=== PATIENT | male | born 1955 | race Caucasian/White ===

== ENCOUNTER 2016-05-13 12:13 | Emergency (ER) | payer OTHER ==
[2016-05-13 12:25] VITALS: BMI 23.4
--- NOTE | 2016-05-13 13:29 | EDPRACDOC ---
- General Information Chief Complaint: Altered Mental Status Stated Complaint: WEAKNESS Time Seen by Provider: 05/13/16 12:19 Information Source: Horticulturalist Home Medications: Home Medications Omeprazole [Prilosec] 40 mg PO DAILY 04/21/14 Amlodipine [Norvasc] 5 mg PO DAILY 03/12/16 Capsaicin [Arthritis Pain Relief] 2 gm TOP QID PRN 03/12/16 Gabapentin 600 mg PO BID 03/12/16 Propranolol HCl [Inderal] 20 mg PO .TID SEE COMMENTS 03/14/16 [place] Tar [T-Gel] 2 ml TOP DAILY 04/12/16 NPH, Human Insulin Isophane [Humulin N] 12 units SQ 0500 04/12/16 Spironolactone [Aldactone] 100 mg PO BID 04/12/16 NPH, Human Insulin Isophane [Humulin N] 4 units SQ 1500 04/15/16 Insulin Glargine [Lantus Pen] 30 units SQ QHS 04/23/16 Amoxicillin/Clavulanate Potas. [Augmentin] 875 mg PO BIDWM #14 tablet 04/30/16 Lactulose 30 ml PO TID 30 Days 04/30/16 Probiotic Blend [Paige Q] 1 each PO BID #30 tab 04/30/16 Allergies/Adverse Reactions: Allergies Allergy/AdvReac Type Severity Reaction Status Date / Time codeine Allergy Itching Verified 05/13/16 12:21 hydrocodone bitartrate Allergy Itching Verified 05/13/16 12:21 [From Vicodin] - History of Present Illness Onset: today Exact Onset of Symptoms: Unknown HPI: PT PRESENTS TODAY [facility] STAFF REPORTS THAT THEY HAD A DIFFICULT TIME WAKING THE PT, AND WHEN THEY WOKE HIM, HE DID NOT KNOW THE YEAR. PT HAS NO COMPLAINTS. PT WELL KNOWN TO EMS WHO STATES THAT PT APPEARS MORE ALERT THAN HE EVER HAS. HAS CHRONIC LIVER FAILURE. PT HAS NO COMPLAINTS. PT STATES "I FEEL GREAT, I DON'T KNOW WHY I'M HERE". Symptoms began: At Night Symptoms Currently: Reports: Improved Altered Quality: Reports: Decreased Alertness Recent Symptoms of: Reports: None Prehospital: Reports: EMT Blood Glucose Result: 134 - Treatment Prior to ED Arrival Reported Medications/Treatment [facility] Treatment BLS IV No ED Past Medical History - History Reviewed Yes Nurses notes reviewed and agree except as marked - Patient Medical History Cardiac History: Reports: Hypertension, Congestive Heart Failure (No documented echocardiogram.), Syncope Respiratory History: Reports: COPD, Pneumonia GI/ History: Reports: Liver Failure (Alcoholic cirrhosis of the liver), Gastroesophageal Reflux Musculoskeletal History: Reports: Arthritis Psychological History: Reports: Anxiety. Denies: Depression, Substance Use Disorder Systemic History: Reports: Anemia (UNSPECIFIED LIKELY DUE TO LIVER), Diabetes ( Type 2) Additional Past Medical History: ACQUIRED HYPOTHYROIDISM Surgical History: Reports: Other (Exploratory laparotomy. [place] filter placement.) - Family Medical History Reports: Diabetes, Stroke, Cardiac Disorders - Social Medical History Smoking Status: Former smoker Social History: Denies: Substance Use Disorder EDM Review of Systems - Review of Systems ROS Negative Except as Marked: Yes All systems reviewed and were negative except as marked Constitutional: No Symptoms Reported Respiratory: No Symptoms Reported Cardiovascular: No Symptoms Reported Gastrointestinal: No Symptoms Reported Neurological: No Symptoms Reported Musculoskeletal: No Symptoms Reported Integumentary: No Symptoms Reported - Physical Exam Constitutional: Alert (Awake), No apparent distress Oriented to: Time, Person, Place Last recorded Vital Signs: Last Vital Signs Temp 97.5 F 05/13/16 12:21 Pulse 69 05/13/16 12:25 Resp 16 05/13/16 12:25 BP 121/71 05/13/16 12:25 Pulse Ox 99 05/13/16 12:25 Oxygen Pulse Oxygen Saturation 99 O2 Device Room Air Oxygen Flow Rate Fraction of Inspired Oxygen ( FIO2) - HEENT Head: Normal Eye Exam: Scleral Icterus Oropharynx: Normal Neck: Normal, Denies Pain, Midline - Respiratory/Cardiovascular Respiratory: Normal - CTA Cardiovascular: Normal - GI Auscultation: Normal Palpation: Fluid Wave Tenderness: Non tender - Musculoskeletal Back: Normal Extremities: Normal - Integumentary Skin: Jaundice Lymphatics: Normal - Neurologic Cerebellar: Normal Mood Description: Normal Thought: Coherent Perception: Normal - Additional Information Additional Information: CASE DISCUSSED WITH DR. SINGER. PT SLEEPING AND WAKES EASILY. PT CONTINUES TO HAVE NO COMPLAINTS. AMMONIA AVERAGE FOR PT. Decision Time to Discharge: 14:34 - Departure Disposition: Home Condition: Stable Final Diagnosis: Cirrhosis Qualifiers: Hepatic cirrhosis type: other cirrhosis Qualified Code(s): K74.69 - Other cirrhosis of liver Instructions: Acute Delirium (ED), Dementia (GEN) Education/Counseling Given To: Other Education/Counseling Given Regarding: Diagnosis, Treatment, Follow Up
[2016-05-13 14:42] VITALS: BP 119/69; PULSE 70; TEMP 98.2
== END 2016-05-13 14:55 ==
LOC: EEVIPCON 12:13 → ED 12:13
DX: K74.69 Other cirrhosis of liver (principal); I10 Essential (primary) hypertension; I50.9 Heart failure, unspecified; J44.9 Chronic obstructive pulmonary disease, unspecified; K21.9 Gastro-esophageal reflux disease without esophagitis; F41.9 Anxiety disorder, unspecified; E11.9 Type 2 diabetes mellitus without complications; Z79.4 Long term (current) use of insulin; Z79.899 Other long term (current) drug therapy
CPT/HCPCS: 82140; 99283

== ENCOUNTER 2016-05-14 10:03 | Inpatient (IN) | payer OTHER ==
[2016-05-14] MEDS ORDERED: SODIUM CHLORIDE 0.9% 10 ML FLUSH FLUSH PRN (10:11)
[2016-05-14 10:15] LABS: ALLEN'S TEST PASS; BEb -1.1 (+/- 2); TCO2 20.4 MMOL/L (23-27)
[2016-05-14 10:16] LABS: ABG Draw Site Right Radial; ABG Draw Tech SI
[2016-05-14 10:44] LABS: LEUKOCYTES/URINE NEG (NEGATIVE); NITRITE/URINE NEG (NEGATIVE); URINE OCCULT BLOOD 1+ (NEG/TRACE); WBC/URINE 0-2 (0-2)
--- NOTE | 2016-05-14 10:46 | EDPRACDOC ---
- General Information Information Source: [facility] - History of Present Illness Onset: 0900 Exact Onset of Symptoms: Unknown Date Symptoms Started: 05/14/16 HPI: PT PRESENTS FROM [facility]. PT WELL KNOWN TO ME; HAS PMH OF LIVER FAILURE AND OFTEN HAS ELEVATED AMMONIA LEVELS. I SAW PT YESTERDAY FOR SAME, BUT YESTERDAY PT WAS TALKING AND HAD NO COMPLAINTS. TODAY, PT COMPLETELY OBTUNDED. VSS AT THIS TIME. Symptoms began: At Night Duration: Since Onset Symptoms Currently: Reports: Worsened Altered Quality: Reports: Decreased Alertness Altered Severity: Reports: Unresponsive Prehospital: Reports: [facility], IV <Kinga Rosa - Last Filed: 05/14/16 12:23> <Johnie Mo - Last Filed: 05/14/16 12:41> - General Information Stated Complaint: AMS Time Seen by Provider: 05/14/16 10:11 Home Medications: Home Medications Omeprazole [Prilosec] 40 mg PO DAILY 04/21/14 Amlodipine [Norvasc] 5 mg PO DAILY 03/12/16 Capsaicin [Arthritis Pain Relief] 2 gm TOP QID PRN 03/12/16 Gabapentin 600 mg PO BID 03/12/16 Propranolol HCl [Inderal] 20 mg PO .TID SEE COMMENTS 03/14/16 [place] Tar [T-Gel] 2 ml TOP DAILY 04/12/16 NPH, Human Insulin Isophane [Humulin N] 12 units SQ 0500 04/12/16 Spironolactone [Aldactone] 100 mg PO BID 04/12/16 NPH, Human Insulin Isophane [Humulin N] 4 units SQ 1500 04/15/16 Insulin Glargine [Lantus Pen] 30 units SQ QHS 04/23/16 Amoxicillin/Clavulanate Potas. [Augmentin] 875 mg PO BIDWM #14 tablet 04/30/16 Lactulose 30 ml PO TID 30 Days 04/30/16 Probiotic Blend [Paige Q] 1 each PO BID #30 tab 04/30/16 Allergies/Adverse Reactions: Allergies Allergy/AdvReac Type Severity Reaction Status Date / Time codeine Allergy Itching Verified 05/13/16 12:21 hydrocodone bitartrate Allergy Itching Verified 05/13/16 12:21 [From Vicodin] - Treatment Prior to ED Arrival Reported Medications/Treatment [facility] Treatment BLS IV Yes <Kinga Rosa - Last Filed: 05/14/16 12:23> - Treatment Prior to ED Arrival Reported Medications/Treatment [facility] Treatment BLS IV Yes <Johnie Mo - Last Filed: 05/14/16 12:41> ED Past Medical History - History Reviewed Yes Nurses notes reviewed and agree except as marked - Patient Medical History Cardiac History: Reports: Hypertension, Congestive Heart Failure (No documented echocardiogram.), Syncope Respiratory History: Reports: COPD, Pneumonia GI/ History: Reports: Liver Failure (Alcoholic cirrhosis of the liver), Gastroesophageal Reflux Musculoskeletal History: Reports: Arthritis Psychological History: Reports: Anxiety. Denies: Depression, Substance Use Disorder Systemic History: Reports: Anemia (UNSPECIFIED LIKELY DUE TO LIVER), Diabetes ( Type 2) Additional Past Medical History: ACQUIRED HYPOTHYROIDISM Surgical History: Reports: Other (Exploratory laparotomy. [place] filter placement.) - Family Medical History Reports: Diabetes, Stroke, Cardiac Disorders - Social Medical History Smoking Status: Current status unknown Social History: Denies: Substance Use Disorder <Kinga Rosa - Last Filed: 05/14/16 12:23> EDM Review of Systems - Review of Systems ROS Negative Except as Marked: Yes All systems reviewed and were negative except as marked ROS Unobtainable: Yes Review of systems cannot be obtained due to the patient's medical condition <Kinga Rosa - Last Filed: 05/14/16 12:23> - Physical Exam Constitutional: Other (OBTUNDED) Oriented to: Unable to Test Last recorded Vital Signs: Last Vital Signs Temp 98 F 05/14/16 10:10 Pulse 62 05/14/16 10:29 Resp 15 05/14/16 10:29 BP 156/67 05/14/16 10:29 Pulse Ox 100 05/14/16 10:29 Oxygen Pulse Oxygen Saturation 100 O2 Device Room Air Oxygen Flow Rate Fraction of Inspired Oxygen ( FIO2) - HEENT Head: Normal Eye Exam: Other (FIXED UPPER GAZE TO LEFT; PUPILS SLUGGISH, BUT RESPONSIVE) Neck: Normal, Denies Pain, Midline - Respiratory/Cardiovascular Respiratory: Normal - CTA Cardiovascular: Normal - GI Auscultation: Decreased Tenderness: Non tender, Other (ABDOMEN DISTENDED WITH FLUID WAVE, BUT SOFT) - Musculoskeletal Back: Normal Extremities: Normal - Integumentary Skin: Jaundice Lymphatics: Normal - Neurologic Cerebellar: Unable to Test <Kinga Rosa - Last Filed: 05/14/16 12:23> - Physical Exam Last recorded Vital Signs: Last Vital Signs Temp 98 F 05/14/16 10:10 Pulse 62 05/14/16 12:18 Resp 16 05/14/16 12:18 BP 135/67 05/14/16 12:18 Pulse Ox 100 05/14/16 12:18 Oxygen Pulse Oxygen Saturation 100 O2 Device Room Air Oxygen Flow Rate Fraction of Inspired Oxygen ( FIO2) <Johnie Mo - Last Filed: 05/14/16 12:41> - Results 05/14/16 10:40 05/14/16 10:40 Puncture Site Right radial 05/14/16 10:12 pH 7.540 pH UNITS (7.35-7.45) H 05/14/16 10:12 pCO2 23.0 mmHg (35-45) L 05/14/16 10:12 pO2 89.0 mmHg (80-100) 05/14/16 10:12 HCO3 19.7 MMOL/L (22-26) L 05/14/16 10:12 Total CO2 20.4 MMOL/L (23-27) L 05/14/16 10:12 Base Excess -1.1 (+/- 2) 05/14/16 10:12 FiO2 % 21% 05/14/16 10:12 Specimen Drawn By Si 05/14/16 10:12 Lab Results 05/14/16 10:12 Puncture Site Right radial pH 7.540 H pCO2 23.0 L pO2 89.0 HCO3 19.7 L Total CO2 20.4 L Base Excess -1.1 FiO2 % 21% Specimen Drawn By Si - EKG EKG #1 EKG Time: 10:18 -: Yes EKG interpreted by me Rate: bpm: 60 [place]: Normal Rhythm: NSR Block: None Hypertrophy: None ST: Normal <Kinga Rosa - Last Filed: 05/14/16 12:23> - Results 05/14/16 10:40 05/14/16 10:40 WBC 5.2 xk/uL (3.8-10.8) 05/14/16 10:40 RBC 4.50 xM/uL (4.70-6.10) L 05/14/16 10:40 Hgb 11.6 g/dL (14.0-18.0) L 05/14/16 10:40 Hct 35.4 % (42-52) L 05/14/16 10:40 MCV 79 fL (80-94) L 05/14/16 10:40 MCH 25.7 pg (27-32) L 05/14/16 10:40 MCHC 32.7 g/dl (33-36) L 05/14/16 10:40 RDW 19.2 % (11.5-14.5) H 05/14/16 10:40 Plt Count 85 xk/uL (130-400) L 05/14/16 10:40 MPV 8.9 fL (7.4-10.4) 05/14/16 10:40 Neut % (Auto) 72.1 % (45-76) 05/14/16 10:40 Lymph % (Auto) 8.8 % (17-44) L 05/14/16 10:40 [place] % (Auto) 15.4 % (3-10) H 05/14/16 10:40 Eos % (Auto) 3.1 % (0-5) 05/14/16 10:40 Baso % (Auto) 0.6 % (0-2) 05/14/16 10:40 Absolute Neuts (auto) 3.74 xk/uL (1.7-8.2) 05/14/16 10:40 Absolute Lymphs (auto) 0.42 xk/uL (0.65-4.75) L 05/14/16 10:40 PT 13.6 SEC (9.2-11.2) H 05/14/16 10:40 INR 1.3 05/14/16 10:40 APTT 27.8 SEC (22-35) 05/14/16 10:40 Puncture Site Right radial 05/14/16 10:12 pH 7.540 pH UNITS (7.35-7.45) H 05/14/16 10:12 pCO2 23.0 mmHg (35-45) L 05/14/16 10:12 pO2 89.0 mmHg (80-100) 05/14/16 10:12 HCO3 19.7 MMOL/L (22-26) L 05/14/16 10:12 Total CO2 20.4 MMOL/L (23-27) L 05/14/16 10:12 Base Excess -1.1 (+/- 2) 05/14/16 10:12 FiO2 % 21% 05/14/16 10:12 Specimen Drawn By Si 05/14/16 10:12 Sodium 140 mEq/L (137-146) 05/14/16 10:40 Potassium 5.8 mEq/L (3.5-5.1) H 05/14/16 10:40 Chloride 109 mEq/L (98-107) H 05/14/16 10:40 Carbon Dioxide 19 mMOL/L (22-33) L 05/14/16 10:40 Anion Gap 18 mEq/L (8-16) H 05/14/16 10:40 BUN 19 MG/DL (9-20) 05/14/16 10:40 Creatinine 0.80 MG/DL (0.66-1.25) 05/14/16 10:40 Estimated GFR (MDRD) > 60 mL/min (>=60) 05/14/16 10:40 Glucose 285 MG/DL (70-99) H 05/14/16 10:40 Calculated Osmolality 281 MOs/Kg (270-290) 05/14/16 10:40 Calcium 9.1 MG/DL (8.4-10.2) 05/14/16 10:40 Corrected Calcium 10.0 MG/DL (8.4-10.2) 05/14/16 10:40 Total Bilirubin 1.9 MG/DL (0.2-1.3) H 05/14/16 10:40 AST 33 IU/L (17-59) 05/14/16 10:40 ALT 27 IU/L (21-72) 05/14/16 10:40 Alkaline Phosphatase 221 IU/L (38-126) H 05/14/16 10:40 Ammonia 152.0 umol/L (9.0-30.0) H 05/14/16 10:40 Troponin I < 0.01 ng/mL (<.04) 05/14/16 10:40 Total Protein 8.3 G/DL (6.3-8.2) H 05/14/16 10:40 Albumin 3.1 G/DL (3.5-5.0) L 05/14/16 10:40 Urine Color Yellow 05/14/16 10:25 Urine Clarity Clear 05/14/16 10:25 Urine pH 8.0 (5.0-8.0) 05/14/16 10:25 Ur Specific [place] 1.005 (1.003-1.035) 05/14/16 10:25 Urine Protein Neg (NEG/TRACE) 05/14/16 10:25 Urine Glucose (UA) 3+ (NEGATIVE) 05/14/16 10:25 Urine Ketones Neg (NEGATIVE) 05/14/16 10:25 Urine Occult Blood 1+ (NEG/TRACE) H 05/14/16 10:25 Urine Nitrite Neg (NEGATIVE) 05/14/16 10:25 Urine Bilirubin Neg (NEGATIVE) 05/14/16 10:25 Urine Urobilinogen <2.0 MG/DL (0-1) 05/14/16 10:25 Ur Leukocyte Esterase Neg (NEGATIVE) 05/14/16 10:25 Urine RBC 2-5 (0-2) H 05/14/16 10:25 Urine WBC 0-2 (0-2) 05/14/16 10:25 Urine Bacteria Few (NEG/FEW) 05/14/16 10:25 Lab Results 05/14/16 05/14/16 05/14/16 10:40 10:40 10:40 WBC 5.2 RBC 4.50 L Hgb 11.6 L Hct 35.4 L MCV 79 L MCH 25.7 L MCHC 32.7 L RDW 19.2 H Plt Count 85 L MPV 8.9 Neut % (Auto) 72.1 Lymph % (Auto) 8.8 L [place] % (Auto) 15.4 H Eos % (Auto) 3.1 Baso % (Auto) 0.6 Absolute Neuts (auto) 3.74 Absolute Lymphs (auto) 0.42 L PT 13.6 H INR 1.3 APTT 27.8 Puncture Site pH pCO2 pO2 HCO3 Total CO2 Base Excess FiO2 % Specimen Drawn By Sodium Potassium Chloride Carbon Dioxide Anion Gap BUN Creatinine Estimated GFR (MDRD) Glucose Calculated Osmolality Calcium Corrected Calcium Total Bilirubin AST ALT Alkaline Phosphatase Ammonia 152.0 H Troponin I Total Protein Albumin Urine Color Urine Clarity Urine pH Ur Specific [place] Urine Protein Urine Glucose (UA) Urine Ketones Urine Occult Blood Urine Nitrite Urine Bilirubin Urine Urobilinogen Ur Leukocyte Esterase Urine RBC Urine WBC Urine Bacteria 01/12/2105/14/16 05/14/16 10:40 10:25 10:12 WBC RBC Hgb Hct MCV MCH MCHC RDW Plt Count MPV Neut % (Auto) Lymph % (Auto) [place] % (Auto) Eos % (Auto) Baso % (Auto) Absolute Neuts (auto) Absolute Lymphs (auto) PT INR APTT Puncture Site Right radial pH 7.540 H pCO2 23.0 L pO2 89.0 HCO3 19.7 L Total CO2 20.4 L Base Excess -1.1 FiO2 % 21% Specimen Drawn By Si Sodium 140 Potassium 5.8 H Chloride 109 H Carbon Dioxide 19 L Anion Gap 18 H BUN 19 Creatinine 0.80 Estimated GFR (MDRD) > 60 Glucose 285 H Calculated Osmolality 281 Calcium 9.1 Corrected Calcium 10.0 Total Bilirubin 1.9 H AST 33 ALT 27 Alkaline Phosphatase 221 H Ammonia Troponin I < 0.01 Total Protein 8.3 H Albumin 3.1 L Urine Color Yellow Urine Clarity Clear Urine pH 8.0 Ur Specific [place] 1.005 Urine Protein Neg Urine Glucose (UA) 3+ Urine Ketones Neg Urine Occult Blood 1+ H Urine Nitrite Neg Urine Bilirubin Neg Urine Urobilinogen <2.0 Ur Leukocyte Esterase Neg Urine RBC 2-5 H Urine WBC 0-2 Urine Bacteria Few <Johnie Mo - Last Filed: 05/14/16 12:41> - Departure Disposition: Admit IP To This Hospital <Kinga Rosa - Last Filed: 05/14/16 12:23> - Departure Disposition: Admit IP To This Hospital Decision to Admit Time: 12:41 Decision to admit date: 05/14/16 Decision to admit: from ED - Physician Consulted Hospitalist Time Called: 12:41 Provider Called: Gama Block Time [employer] Patcher Returned Call: 12:41 <Johnie Mo - Last Filed: 05/14/16 12:41> - Departure Final Diagnosis: Hepatic encephalopathy, Metabolic alkalosis Altered mental status Qualifiers: Altered mental status type: coma Coma depth: Emmanuel coma 3-8 Coma timing: unspecified coma timing Qualified Code(s): R40.2430 - Depue coma scale score 3 -8, unspecified time
[2016-05-14 10:52] LABS: AUTOMATED BASOPHIL 0.6 % (0-2); AUTOMATED EOSINOPHIL 3.1 % (0-5); AUTOMATED LYMPH 8.8 % (17-44); AUTOMATED MONOCYTE 15.4 % (3-10); AUTOMATED NEUTROPHIL 72.1 % (45-76); MPV 8.9 fL (7.4-10.4)
--- NOTE | 2016-05-14 11:03 | DIRPT ---
CLINICAL DATA: Chest pain. Altered mental status. EXAM: PORTABLE CHEST 1 VIEW COMPARISON: 04/28/2016 FINDINGS: The cardiac silhouette is normal. Mediastinal contours appear intact. There is an area of subtle airspace consolidation in the right cardiophrenic angle. No evidence of pleural effusion or pneumothorax. Osseous structures are without acute abnormality. Soft tissues are grossly normal. IMPRESSION: Subtle area of airspace opacity in the right cardiophrenic angle, which may represent hypoventilatory changes or development of acute airspace consolidation. Electronically Signed By: Sasha Cuevas M.D. On: 05/14/2016 11:00
[2016-05-14 11:10] LABS: BLOOD UREA NITROGEN 19 MG/DL (9-20); CALCIUM 9.1 MG/DL (8.4-10.2); CALCULATED OSMOLALITY 281 MOs/Kg (270-290); CHLORIDE 109 mEq/L (98-107); GLUCOSE 285 MG/DL (70-99); SODIUM LEVEL 140 mEq/L (137-146); TOTAL PROTEIN 8.3 G/DL (6.3-8.2)
[2016-05-14 11:15] LABS: PARTIAL THROMB. TIME 27.8 SEC (22-35); PT-INR 1.3
--- NOTE | 2016-05-14 12:59 | HISTPHYS ---
- Chief Complaint altered mental status - History of Present Illness Mr. Peña is a 60-year-old inmate with a history of end-stage alcoholic cirrhosis who presents emergency room for the 2nd time in 2 days. He was seen yesterday for generalized weakness and malaise. Today he returns with altered mental status. He is completely obtunded and unable to provide any history. His ammonia level was found to be significantly elevated at greater than 150. He has multiple emergency room visits over the last 2-3 months and appears to have declining health. He did require paracentesis last hospitalization in late April. He appears cachectic and chronically ill. Given his unresponsive state he will be admitted to the hospital for further evaluation and management. - Medical History Cardiac History: Reports: Hypertension, Congestive Heart Failure (No documented echocardiogram.), Syncope Respiratory History: Reports: COPD, Pneumonia GI/ History: Reports: Liver Failure (Alcoholic cirrhosis of the liver), Gastroesophageal Reflux Musculoskeletal History: Reports: Arthritis Systemic History: Reports: Anemia (UNSPECIFIED LIKELY DUE TO LIVER), Diabetes ( Type 2) Neurological History: Reports: No Significant History Psychological History: Reports: Anxiety, Alcoholism. Denies: Depression, Substance Use Disorder - Surgical History Reports: Other (Exploratory laparotomy. Ric filter placement.) - Medictions/Allergies Allergies codeine Allergy (Verified 05/13/16 12:21) Itching hydrocodone bitartrate [From Vicodin] Allergy (Verified 05/13/16 12:21) Itching Current Medication List: Reviewed Home Medications Omeprazole [Prilosec] 40 mg PO DAILY 04/21/14 Amlodipine [Norvasc] 5 mg PO DAILY 03/12/16 Capsaicin [Arthritis Pain Relief] 2 gm TOP QID PRN 03/12/16 Gabapentin 600 mg PO BID 03/12/16 Propranolol HCl [Inderal] 20 mg PO .TID SEE COMMENTS 03/14/16 [place] Tar [T-Gel] 2 ml TOP DAILY 04/12/16 NPH, Human Insulin Isophane [Humulin N] 12 units SQ 0500 04/12/16 Spironolactone [Aldactone] 100 mg PO BID 04/12/16 NPH, Human Insulin Isophane [Humulin N] 4 units SQ 1500 04/15/16 Insulin Glargine [Lantus Pen] 30 units SQ QHS 04/23/16 Amoxicillin/Clavulanate Potas. [Augmentin] 875 mg PO BIDWM #14 tablet 04/30/16 Lactulose 30 ml PO TID 30 Days 04/30/16 Probiotic Blend [Paige Q] 1 each PO BID #30 tab 04/30/16 - Family History Reports: Diabetes, Stroke, Cardiac Disorders - Social History Travel Outside of [place] in the Last 3 Months?: No Lives: Other ([facility] facility) Smoking Status: Current status unknown Social History: Reports: Alcohol Use (Quit 3 years ago). Denies: Substance Use Disorder - Review of Systems Yes Review of systems cannot be obtained due to the patient's medical condition (obtunded) - Physical Exam Constitutional: Cachectic, Other (OBTUNDED). negative: Well nourished, Well appearing (chronically ill appearing) Oriented to: Unable to Test Exam: Last Vital Signs Temp 98 F 05/14/16 10:10 Pulse 62 05/14/16 12:18 Resp 16 05/14/16 12:18 BP 135/67 05/14/16 12:18 Pulse Ox 100 05/14/16 12:18 Intake & Output 05/13/16 05/14/16 05/14/16 23:59 07:59 15:59 Patient's weight 67.585 kg - HEENT Head: Normal Eye: Other (Eyes rolled back. Pupils respond appropriately) Oropharynx: Membranes Dry - Respiratory/Cardiovascular Respiratory: Normal - CTA. negative: Rales, Rhonchi, Wheezes Cardiovascular: Normal - GI Auscultation: Decreased Palpation: Normal Tenderness: Non tender, Other (Mildly distended however soft with no evidence of tense ascites) - Musculoskeletal Back: Normal. negative: Abrasion Extremities: Normal, Femoral Pulse, Pedal Pulse. negative: Calf Tenderness, Edema, Pedal Edema - Integumentary Skin: Warm, Dry, Jaundice Lymphatics: Normal - Neurologic Memory Impaired: Unable to Test Motor Function: Unable to Test Cerebellar: Unable to Test Mood Description: Other (Unresponsive) Thought: negative: Coherent Perception: negative: Normal - Focused CV Perfusion Exam Vital Signs: Last Vital Signs Temp 98 F 05/14/16 10:10 Pulse 62 05/14/16 12:18 Resp 16 05/14/16 12:18 BP 135/67 05/14/16 12:18 Pulse Ox 100 05/14/16 12:18 - Lab Results Laboratory Results - last 24 hr 05/14/16 05/14/16 05/14/16 10:12 10:25 10:40 WBC RBC Hgb Hct MCV MCH MCHC RDW Plt Count MPV Neut % (Auto) Lymph % (Auto) [place] % (Auto) Eos % (Auto) Baso % (Auto) Absolute Neuts (auto) Absolute Lymphs (auto) PT INR APTT Puncture Site Right radial pH 7.540 H pCO2 23.0 L pO2 89.0 HCO3 19.7 L Total CO2 20.4 L Base Excess -1.1 FiO2 % 21% Specimen Drawn By Si Sodium 140 Potassium 5.8 H Chloride 109 H Carbon Dioxide 19 L Anion Gap 18 H BUN 19 Creatinine 0.80 Estimated GFR (MDRD) > 60 Glucose 285 H Hemoglobin A1c Calculated Osmolality 281 Calcium 9.1 Corrected Calcium 10.0 Total Bilirubin 1.9 H AST 33 ALT 27 Alkaline Phosphatase 221 H Ammonia Troponin I < 0.01 Total Protein 8.3 H Albumin 3.1 L Urine Color Yellow Urine Clarity Clear Urine pH 8.0 Ur Specific [place] 1.005 Urine Protein Neg Urine Glucose (UA) 3+ Urine Ketones Neg Urine Occult Blood 1+ H Urine Nitrite Neg Urine Bilirubin Neg Urine Urobilinogen <2.0 Ur Leukocyte Esterase Neg Urine RBC 2-5 H Urine WBC 0-2 Urine Bacteria Few 05/14/16 05/14/16 05/14/16 10:40 10:40 10:40 WBC 5.2 RBC 4.50 L Hgb 11.6 L Hct 35.4 L MCV 79 L MCH 25.7 L MCHC 32.7 L RDW 19.2 H Plt Count 85 L MPV 8.9 Neut % (Auto) 72.1 Lymph % (Auto) 8.8 L [place] % (Auto) 15.4 H Eos % (Auto) 3.1 Baso % (Auto) 0.6 Absolute Neuts (auto) 3.74 Absolute Lymphs (auto) 0.42 L PT 13.6 H INR 1.3 APTT 27.8 Puncture Site pH pCO2 pO2 HCO3 Total CO2 Base Excess FiO2 % Specimen Drawn By Sodium Potassium Chloride Carbon Dioxide Anion Gap BUN Creatinine Estimated GFR (MDRD) Glucose Hemoglobin A1c Calculated Osmolality Calcium Corrected Calcium Total Bilirubin AST ALT Alkaline Phosphatase Ammonia 152.0 H Troponin I Total Protein Albumin Urine Color Urine Clarity Urine pH Ur Specific [place] Urine Protein Urine Glucose (UA) Urine Ketones Urine Occult Blood Urine Nitrite Urine Bilirubin Urine Urobilinogen Ur Leukocyte Esterase Urine RBC Urine WBC Urine Bacteria 05/14/16 05/14/16 10:40 13:14 WBC RBC Hgb Hct MCV MCH MCHC RDW Plt Count MPV Neut % (Auto) Lymph % (Auto) [place] % (Auto) Eos % (Auto) Baso % (Auto) Absolute Neuts (auto) Absolute Lymphs (auto) PT INR APTT Puncture Site pH pCO2 pO2 HCO3 Total CO2 Base Excess FiO2 % Specimen Drawn By Sodium Potassium Chloride Carbon Dioxide Anion Gap BUN Creatinine Estimated GFR (MDRD) Glucose Hemoglobin A1c 10.1 H Calculated Osmolality Calcium Corrected Calcium Total Bilirubin AST ALT Alkaline Phosphatase Ammonia Troponin I < 0.01 Total Protein Albumin Urine Color Urine Clarity Urine pH Ur Specific [place] Urine Protein Urine Glucose (UA) Urine Ketones Urine Occult Blood Urine Nitrite Urine Bilirubin Urine Urobilinogen Ur Leukocyte Esterase Urine RBC Urine WBC Urine Bacteria - Assessment (1) Hepatic encephalopathy K72.90 - HEPATIC FAILURE, UNSPECIFIED WITHOUT COMA Acute Present on Admission: Yes Has a history of noncompliance with his lactulose. Discussed with guard supervisor. He is unsure whether the patient has been taking his medications or not. Currently obtunded and unable to take oral lactulose. Hesitate to place NG tube given history of esophageal varices so will order lactulose enema. Monitor ammonia levels and cognition. (2) Hyperkalemia E87.5 - HYPERKALEMIA Acute Present on Admission: Yes Hold Aldactone. (3) Cirrhosis K74.60 - UNSPECIFIED CIRRHOSIS OF LIVER Acute Present on Admission: Yes Qualifiers: Hepatic cirrhosis type: alcoholic cirrhosis Ascites presence: with ascites Qualified Code(s): K70.31 - Alcoholic cirrhosis of liver with ascites Had a paracentesis in April. Abdomen relatively soft without tense ascites. Hold Aldactone due to hyperkalemia (4) Diabetes mellitus E11.9 - TYPE 2 DIABETES MELLITUS WITHOUT COMPLICATIONS Chronic Qualifiers: Diabetes mellitus type: type 2 Diabetes mellitus complication status: without complication Diabetes mellitus assistant terminal manager insulin use: with intermediate use Qualified Code(s): E11.9 - Type 2 diabetes mellitus without complications ; Z79.4 - assistant terminal manager (current) use of insulin ADA diet when able to take orals and use sliding scale insulin coverage. Check hemoglobin A1c and microalbumin (5) Esophageal varices I85.00 - ESOPHAGEAL VARICES WITHOUT BLEEDING Chronic Qualifiers: Esophageal varices type: secondary Esophageal varices bleeding: without bleeding Qualified Code(s): I85.10 - Secondary esophageal varices without bleeding History of EGD in cirrhosis. History of varices. Will follow. (6) Hypertension I10 - ESSENTIAL (PRIMARY) HYPERTENSION Chronic Present on Admission: Yes Qualifiers: Hypertension type: essential hypertension Qualified Code(s): I10 - Essential (primary) hypertension Continue antibiotics and pulmonary toilet (7) Pancytopenia D61.818 - OTHER PANCYTOPENIA Chronic Present on Admission: Yes Counts are okay currently. Continue to monitor Case Care Discussed with: Patient Total Time: 1hour Critical Care: Yes
[2016-05-14] MEDS ORDERED: GLUCOSE (ORAL GEL) 15 GM TUBE PO PRN (13:00)
[2016-05-14] MEDS ORDERED: Docusate Sodium 100 MG CAP PO PRN (13:00)
[2016-05-14] MEDS ORDERED: ACETAMINOPHEN 325 MG/TAB TABLET PO PRN (13:00)
[2016-05-14] MEDS ORDERED: DEXTROSE 25 GM/50 ML PFS IV PRN (13:00)
[2016-05-14] MEDS ORDERED: ONDANSETRON HCL 4 MG/2 ML VIAL IV PRN (13:00)
[2016-05-14] MEDS ORDERED: MAGNESIUM HYDROXIDE 30 ML BOTTLE PO PRN (13:00)
[2016-05-14] MEDS ORDERED: BENZONATATE 100 MG PERLES PO PRN (13:00)
[2016-05-14] MEDS ORDERED: ZOLPIDEM TARTRATE 5 MG TAB PO PRN (13:00)
[2016-05-14] MEDS ORDERED: PROMETHAZINE 25 MG/ML VIAL IV PRN (13:00)
[2016-05-14] MEDS ORDERED: GLUCAGON 1 MG VIAL SQ PRN (13:00)
[2016-05-14] MEDS ORDERED: GUAIFENESIN 200 MG/10 ML UDC PO PRN (13:00)
[2016-05-14] MEDS ORDERED: ACETAMINOPHEN 650 MG SUPP PR PRN (13:00)
[2016-05-14] MEDS ORDERED: LACTULOSE PO SCH (14:00)
[2016-05-14] MEDS: PANTOPRAZOLE 40 MG VIAL IV SCH (15:10)
[2016-05-14] MEDS: LACTULOSE 10 GM/15 ML ORAL SOLN 480 ML PR SCH ×2 (15:11→22:04)
[2016-05-14] MEDS: NS 1,000 ML IV SCH (15:29)
[2016-05-14] MEDS: PROPRANOLOL 20 MG TAB PO SCH ×2 (15:30→22:12)
[2016-05-14] MEDS: LACTULOSE 20 GM/30 ML ORAL SOLN PO SCH ×2 (15:30→21:42)
[2016-05-14] MEDS ORDERED: Vaccine Screening Complete SCH (16:00)
[2016-05-14] MEDS: REGULAR INSULIN 100 UNITS/ML - 3 ML VIAL SQ SCH ×2 (17:21→21:59)
[2016-05-14] MEDS: PROBIOTIC BLEND TAB PO SCH (17:22)
[2016-05-15] MEDS: NS 1,000 ML IV SCH ×3 (01:24→15:46)
[2016-05-15] MEDS: PANTOPRAZOLE 40 MG VIAL IV SCH ×2 (01:26→13:37)
[2016-05-15] MEDS: LACTULOSE 10 GM/15 ML ORAL SOLN 480 ML PR SCH ×2 (03:27→07:23)
[2016-05-15] MEDS: PROPRANOLOL 20 MG TAB PO SCH ×3 (05:16→22:00)
[2016-05-15] MEDS: LACTULOSE 20 GM/30 ML ORAL SOLN PO SCH ×3 (05:16→17:41)
[2016-05-15] MEDS: REGULAR INSULIN 100 UNITS/ML - 3 ML VIAL SQ SCH ×4 (06:05→22:00)
[2016-05-15] MEDS ORDERED: PNEUMOCOCCAL 0.5 ML VIAL IM ONE (08:00)
--- NOTE | 2016-05-15 08:14 | GENMEDPROG ---
Chief Complaint: Much better. More alert today. Labs still pending. Denies pain. Request diet - Physical Examination Vital Signs and I&O: Last Vital Signs Temp 98.7 F 05/15/16 07:00 Pulse 89 05/15/16 07:00 Resp 16 05/15/16 07:00 BP 117/59 L 05/15/16 07:00 Pulse Ox 99 05/15/16 07:00 Oxygen Pulse Oxygen Saturation 99 O2 Device Room Air Oxygen Flow Rate Fraction of Inspired Oxygen ( FIO2) Intake & Output 05/12/16 05/13/16 05/14/16 05/15/16 23:59 23:59 23:59 23:59 Intake Total 755 755 Output Total 2 201 Balance 753 554 Patient's weight 64.637 kg Lymphatics: Normal Respiratory: Normal - CTA. negative: Rales, Rhonchi, Wheezes - Assessment (1) Hepatic encephalopathy Acute K72.90 - HEPATIC FAILURE, UNSPECIFIED WITHOUT COMA Comment/Plan: Has a history of noncompliance with his lactulose. Discussed with [employer] guard member. He is unsure whether the patient has been taking his medications or not. Currently obtunded and unable to take oral lactulose. Hesitate to place NG tube given history of esophageal varices so will order lactulose enema. Monitor ammonia levels and cognition. (2) Hyperkalemia Acute E87.5 - HYPERKALEMIA Comment/Plan: Hold Aldactone. (3) Cirrhosis Acute K74.60 - UNSPECIFIED CIRRHOSIS OF LIVER Qualifiers: Hepatic cirrhosis type: alcoholic cirrhosis Ascites presence: with ascites Qualified Code(s): K70.31 - Alcoholic cirrhosis of liver with ascites Comment/Plan: Had a paracentesis in April. Abdomen relatively soft without tense ascites. Hold Aldactone due to hyperkalemia (4) Diabetes mellitus Chronic E11.9 - TYPE 2 DIABETES MELLITUS WITHOUT COMPLICATIONS Qualifiers: Diabetes mellitus type: type 2 Diabetes mellitus complication status: without complication Diabetes mellitus shelter insulin use: with long term care administrator use Qualified Code(s): E11.9 - Type 2 diabetes mellitus without complications ; Z79.4 - terminal clerk (current) use of insulin Comment/Plan: ADA diet when able to take orals and use sliding scale insulin coverage. Check hemoglobin A1c and microalbumin (5) Esophageal varices Chronic I85.00 - ESOPHAGEAL VARICES WITHOUT BLEEDING Qualifiers: Esophageal varices type: secondary Esophageal varices bleeding: without bleeding Qualified Code(s): I85.10 - Secondary esophageal varices without bleeding Comment/Plan: History of EGD in cirrhosis. History of varices. Will follow. (6) Hypertension Chronic I10 - ESSENTIAL (PRIMARY) HYPERTENSION Qualifiers: Hypertension type: essential hypertension Qualified Code(s): I10 - Essential (primary) hypertension Comment/Plan: Continue antibiotics and pulmonary toilet (7) Pancytopenia Chronic D61.818 - OTHER PANCYTOPENIA Comment/Plan: Counts are okay currently. Continue to monitor
[2016-05-15 08:34] LABS: BLOOD UREA NITROGEN 29 MG/DL (9-20); CALCIUM 8.7 MG/DL (8.4-10.2); CALCULATED OSMOLALITY 291 MOs/Kg (270-290); CHLORIDE 117 mEq/L (98-107); GLUCOSE 204 MG/DL (70-99); SODIUM LEVEL 145 mEq/L (137-146); TOTAL PROTEIN 7.3 G/DL (6.3-8.2)
[2016-05-15] MEDS ORDERED: LACTULOSE 10 GM/15 ML ORAL SOLN 480 ML PR SCH (10:00)
[2016-05-15] MEDS: AMLODIPINE 5 MG TAB PO SCH (10:49)
[2016-05-15] MEDS: PROBIOTIC BLEND TAB PO SCH ×2 (11:26→17:41)
--- NOTE | 2016-05-15 15:12 | PCM.DCS92 ---
- Final/Secondary Discharge Diagnosis (1) Hepatic encephalopathy Acute K72.90 - HEPATIC FAILURE, UNSPECIFIED WITHOUT COMA Present on Admission: Yes Comment: Much improved. Ammonia level now less than 9.0. Awake alert ambulating in the ICU. At this point he is stable. Stressed compliance with lactulose. Needs to be taking this at least 3 times a day. (2) Hyperkalemia Acute E87.5 - HYPERKALEMIA Present on Admission: Yes Comment: Resolved. 4.6 today. (3) Cirrhosis Acute K74.60 - UNSPECIFIED CIRRHOSIS OF LIVER Present on Admission: Yes alcoholic cirrhosis with ascites K70.31 - Alcoholic cirrhosis of liver with ascites Comment: Resolved. (4) Diabetes mellitus Chronic E11.9 - TYPE 2 DIABETES MELLITUS WITHOUT COMPLICATIONS Present on Admission: Yes type 2 without complication with detention use E11.9 - Type 2 diabetes mellitus without complications; Z79.4 - senior care (current) use of insulin Comment: ADA diet when able to take orals and use sliding scale insulin coverage. Check hemoglobin A1c and microalbumin (5) Esophageal varices Chronic I85.00 - ESOPHAGEAL VARICES WITHOUT BLEEDING secondary without bleeding I85.10 - Secondary esophageal varices without bleeding Comment: History of EGD in cirrhosis. History of varices. Will follow. (6) Hypertension Chronic I10 - ESSENTIAL (PRIMARY) HYPERTENSION Present on Admission: Yes essential hypertension I10 - Essential (primary) hypertension Comment: Continue antibiotics and pulmonary toilet (7) Pancytopenia Chronic D61.818 - OTHER PANCYTOPENIA Present on Admission: Yes Comment: Counts are okay currently. Continue to monitor Discharge Disposition: Trans. to Other Hospital Discharge Condition: Improved Cognitive Discharge Status: Unimpaired Fuctional Discharge Status: Independent O2 Device: Room Air - DC Summary Notes Hospital Course Note:: Discharge summary on patient named MI TELLEZ admitted to [facility] on 05/14/16 by Alexis Butler MD. Date of discharge is []. - Physical Exam Vital Signs: Last Vital Signs Temp 98.7 F 05/15/16 10:00 Pulse 102 05/15/16 10:00 Resp 22 05/15/16 10:00 BP 143/70 05/15/16 10:00 Pulse Ox 94 05/15/16 10:00 Oxygen Pulse Oxygen Saturation 94 O2 Device Room Air Oxygen Flow Rate Fraction of Inspired Oxygen ( FIO2) Constitutional: No apparent distress, Alert, Cachectic. negative: Well nourished, Well appearing (chronically ill appearing) Oriented to: Time, Person, Place - HEENT Head: Normal Eye: Normal Oropharynx: Normal - Respiratory/Cardiovascular Respiratory: Normal - CTA. negative: Rales, Rhonchi, Wheezes Cardiovascular: Normal - GI Auscultation: Decreased Palpation: Normal Tenderness: Non tender, Other (Mildly distended however soft with no evidence of tense ascites) - Musculoskeletal Back: Normal. negative: Abrasion Extremities: Normal, Femoral Pulse, Pedal Pulse. negative: Calf Tenderness, Edema, Pedal Edema - Integumentary Skin: Warm, Dry, Jaundice Lymphatics: Normal. negative: Adenopathy - Neurologic Memory Impaired: Normal Motor Function: Normal Cranial Nerve: Normal Cerebellar: Normal Mood Description: Normal Thought: negative: Coherent Perception: negative: Normal
[2016-05-16] MEDS: REGULAR INSULIN 100 UNITS/ML - 3 ML VIAL SQ SCH ×2 (00:23→06:33)
[2016-05-16] MEDS: LACTULOSE 20 GM/30 ML ORAL SOLN PO SCH ×2 (01:29→08:13)
[2016-05-16 05:54] LABS: MPV 8.8 fL (7.4-10.4)
[2016-05-16] MEDS ORDERED: PANTOPRAZOLE 40 MG TAB PO SCH (06:00)
[2016-05-16 06:26] VITALS: BP 107/53; TEMP 98.1; BMI 24.0
[2016-05-16] MEDS: PROPRANOLOL 20 MG TAB PO SCH (06:36)
[2016-05-16 06:44] LABS: BLOOD UREA NITROGEN 25 MG/DL (9-20); CALC CORRECTED 9.8 MG/DL (8.4-10.2); CALCIUM 8.3 MG/DL (8.4-10.2); CALCULATED OSMOLALITY 276 MOs/Kg (270-290); CHLORIDE 110 mEq/L (98-107); GLUCOSE 207 MG/DL (70-99); SODIUM LEVEL 138 mEq/L (137-146); TOTAL PROTEIN 6.7 G/DL (6.3-8.2)
--- NOTE | 2016-05-16 08:08 | PCM.DCS92 ---
- Final/Secondary Discharge Diagnosis (1) Hepatic encephalopathy Acute K72.90 - HEPATIC FAILURE, UNSPECIFIED WITHOUT COMA Present on Admission: Yes Comment: Much improved. Sitting up in bed requesting breakfast. Denies complaints at this time. Planning transfer to [facility] for continued care given declining liver function (2) Hyperkalemia Acute E87.5 - HYPERKALEMIA Present on Admission: Yes Comment: Resolved. Holding Aldactone. Potassium level 4.7 today (3) Cirrhosis Acute K74.60 - UNSPECIFIED CIRRHOSIS OF LIVER Present on Admission: Yes alcoholic cirrhosis with ascites K70.31 - Alcoholic cirrhosis of liver with ascites Comment: End-stage liver disease. Frequent episodes of hepatic encephalopathy. For visits to the ER the last couple of weeks. Stressed compliance with lactulose. Would recommend starting Xifaxan. (4) Diabetes mellitus Chronic E11.9 - TYPE 2 DIABETES MELLITUS WITHOUT COMPLICATIONS Present on Admission: Yes type 2 without complication with extermination supervisor use E11.9 - Type 2 diabetes mellitus without complications; Z79.4 - shelter (current) use of insulin Comment: ADA diet when able to take orals and use sliding scale insulin coverage. Check hemoglobin A1c and microalbumin (5) Esophageal varices Chronic I85.00 - ESOPHAGEAL VARICES WITHOUT BLEEDING secondary without bleeding I85.10 - Secondary esophageal varices without bleeding Comment: Seen on previous endoscopies. No evidence of active bleeding currently. (6) Hypertension Chronic I10 - ESSENTIAL (PRIMARY) HYPERTENSION Present on Admission: Yes essential hypertension I10 - Essential (primary) hypertension Comment: Continue antibiotics and pulmonary toilet (7) Pancytopenia Chronic D61.818 - OTHER PANCYTOPENIA Present on Admission: Yes Comment: Counts are okay currently. Continue to monitor Discharge Disposition: Trans. to Other Hospital Discharge Condition: Stable Cognitive Discharge Status: Unimpaired Fuctional Discharge Status: Deconditioning New Prescriptions: Rifaximin [Xifaxan] 550 mg PO BID #30 tablet Discharge Home Medication List Omeprazole [Prilosec] 40 mg PO DAILY 04/21/14 [History Confirmed 04/30/16 Last Taken 04/30/16 05:22] Amlodipine [Norvasc] 5 mg PO DAILY 03/12/16 [History Confirmed 04/30/16 Last Taken 04/30/16 10:53] Capsaicin [Arthritis Pain Relief] 2 gm TOP QID PRN 03/12/16 [History Confirmed 04/27/16 Last Taken 03/14/16] Gabapentin 600 mg PO BID 03/12/16 [History Confirmed 04/30/16 Last Taken 10:53] Propranolol HCl [Inderal] 20 mg PO .TID SEE COMMENTS 03/14/16 [History Confirmed 04/30/16 Last Taken 04/30/16 15:06] [place] Tar [T-Gel] 2 ml TOP DAILY 04/12/16 [History Confirmed 04/27/16 Last Taken Unknown] NPH, Human Insulin Isophane [Humulin N] 12 units SQ 0500 04/12/16 [History Confirmed 04/30/16 Last Taken 04/30/16 05:17] NPH, Human Insulin Isophane [Humulin N] 4 units SQ 1500 04/15/16 [History Confirmed 04/30/16 Last Taken 04/30/16 15:06] Insulin Glargine [Lantus Pen] 30 units SQ QHS 04/23/16 [History Confirmed Last Taken 04/29/16 21:53] Lactulose 30 ml PO TID 30 Days 04/30/16 [Rx Last Taken 04/30/16 10:53] Probiotic Blend [Paige Q] 1 each PO BID #30 tab 04/30/16 [Rx Last Taken Unknown] Rifaximin [Xifaxan] 550 mg PO BID #30 tablet 05/16/16 [Rx Last Taken Unknown] O2 Device: Room Air Diet at Discharge: Other (low protein, liver failure diet) Activity: As Tolerated - DC Summary Notes Hospital Course Note:: Discharge summary on patient named MI PEÑA admitted to [facility] on 05/14/16 by Alexis Butler MD. Date of discharge is []. Mr. Peña is a chronically ill 60-year-old white male inmate with a history of end-stage liver disease due to hepatitis C and alcohol abuse. He was admitted to the hospital unresponsive with hepatic encephalopathy. He had multiple visits to the emergency room and hospitalizations over the course the last several weeks. Because of his elevated ammonia level and mental status changes he was admitted to the hospital. He was treated with lactulose enemas. His initial ammonia level was elevated at 150 however after the enemas this decreased down to less than 9. Due to his declining health the local skilled nursing [facility] has recommended that he be transferred to [facility] in [place]. I discussed his case with the physician there yesterday and they have agreed to accept him in transfer today. This morning he is sitting up in bed requesting breakfast. He denies any complaints. At admission he was found to be hyperkalemic so we have discontinued his Aldactone. His potassium is currently 4.7. Given the frequent episodes of hepatic encephalopathy despite compliance with lactulose we have recommended starting him on Xifaxan. He will follow up with the skilled nursing physician later today when he arrives in [place]. Given his declining health he is hospice appropriate at this time Total Time: 1 hour - Physical Exam Vital Signs: Last Vital Signs Temp 98.1 F 05/16/16 06:00 Pulse 66 05/16/16 06:30 Resp 18 05/16/16 06:00 BP 107/53 L 05/16/16 06:00 Pulse Ox 94 05/16/16 06:00 Oxygen Pulse Oxygen Saturation 94 O2 Device Room Air Oxygen Flow Rate Fraction of Inspired Oxygen ( FIO2) Constitutional: No apparent distress, Alert, Cachectic. negative: Well nourished, Well appearing (chronically ill appearing) Oriented to: Time, Person, Place - HEENT Head: Normal Eye: Normal Oropharynx: Normal - Respiratory/Cardiovascular Respiratory: Normal - CTA. negative: Rales, Rhonchi, Wheezes Cardiovascular: Normal - GI Auscultation: Normal Palpation: Normal Tenderness: Non tender, Other (Mildly distended however soft with no evidence of tense ascites) - Musculoskeletal Back: Normal. negative: Abrasion Extremities: Normal, Femoral Pulse, Pedal Pulse. negative: Calf Tenderness, Edema, Pedal Edema - Integumentary Skin: Warm, Dry, Jaundice Lymphatics: Normal. negative: Adenopathy - Neurologic Memory Impaired: Normal Motor Function: Normal Cranial Nerve: Normal Cerebellar: Normal Mood Description: Normal Thought: Coherent Perception: Normal
[2016-05-16] MEDS: AMLODIPINE 5 MG TAB PO SCH (08:13)
[2016-05-16 08:45] VITALS: PULSE 69
--- NOTE | 2016-05-16 16:43 | GENMEDPROG ---
Chief Complaint: Much more alert and interactive. Ammonia level is better Notes Reviewed: Yes Events from last night noted and discussed with Clinical Staff Current Medication List: Reviewed Currently: Denies: Cough, Wheezing, QUINONEZ, SOB - Physical Examination Vital Signs and I&O: Last Vital Signs Temp 98.1 F 05/16/16 06:00 Pulse 69 05/16/16 08:20 Resp 18 05/16/16 06:00 BP 107/53 L 05/16/16 06:00 Pulse Ox 94 05/16/16 06:00 Oxygen Pulse Oxygen Saturation 94 O2 Device Room Air Oxygen Flow Rate Fraction of Inspired Oxygen ( FIO2) Intake & Output 05/13/16 05/14/16 05/15/16 05/16/16 23:59 23:59 23:59 23:59 Intake Total 755 3654 87 Output Total 2 576 Balance 753 3078 87 Patient's weight 64.637 kg 69.49 kg General: Alert, Oriented x3, Cooperative. negative: Well appearing ( Chronically ill-appearing) HEENT: Normal, PERRLA, EOMI, Anicteric Sclera Neck: Non-tender, Full range of motion, Normal Trachea alignment. negative: JVD Lymphatics: Normal. negative: Adenopathy Respiratory: Normal - CTA. negative: Rales, Rhonchi, Wheezes Cardiovascular: Regular rate and rhythm, No Gallops,Rubs/Murmurs GI: Normal bowel sounds, Soft (With mild distension), Non tender, No hepatospenomegaly Extremities/Musculoskeletal: Normal pulses. negative: Tenderness, Swelling, Edema Skin: Warm,Dry and Intact, No rashes, No breakdown, No significant lesion Neurological: Normal speech, Strength at 5/5 X4 ext, Normal tone, Cranial nerves 3-12 NL Psych/Mental Status: Appropriate, Normal Affect, Cooperative - Assessment (1) Hepatic encephalopathy Acute K72.90 - HEPATIC FAILURE, UNSPECIFIED WITHOUT COMA Comment/Plan: Much improved. Ammonia level down to 9. Discussed with [facility] facility. They [facility] (2) Hyperkalemia Acute E87.5 - HYPERKALEMIA Comment/Plan: Resolved. Holding Aldactone. Potassium level 4.7 today (3) Cirrhosis Acute K74.60 - UNSPECIFIED CIRRHOSIS OF LIVER Qualifiers: Hepatic cirrhosis type: alcoholic cirrhosis Ascites presence: with ascites Qualified Code(s): K70.31 - Alcoholic cirrhosis of liver with ascites Comment/Plan: End-stage liver disease. Frequent episodes of hepatic encephalopathy. For visits to the ER the last couple of weeks. Stressed compliance with lactulose. Would recommend starting Xifaxan. (4) Diabetes mellitus Chronic E11.9 - TYPE 2 DIABETES MELLITUS WITHOUT COMPLICATIONS Qualifiers: Diabetes mellitus type: type 2 Diabetes mellitus complication status: without complication Diabetes mellitus intermodal dispatcher insulin use: with halfway use Qualified Code(s): E11.9 - Type 2 diabetes mellitus without complications ; Z79.4 - remote computer terminal operator (current) use of insulin Comment/Plan: ADA diet when able to take orals and use sliding scale insulin coverage. Check hemoglobin A1c and microalbumin (5) Esophageal varices Chronic I85.00 - ESOPHAGEAL VARICES WITHOUT BLEEDING Qualifiers: Esophageal varices type: secondary Esophageal varices bleeding: without bleeding Qualified Code(s): I85.10 - Secondary esophageal varices without bleeding Comment/Plan: Seen on previous endoscopies. No evidence of active bleeding currently. (6) Hypertension Chronic I10 - ESSENTIAL (PRIMARY) HYPERTENSION Qualifiers: Hypertension type: essential hypertension Qualified Code(s): I10 - Essential (primary) hypertension Comment/Plan: Continue antibiotics and pulmonary toilet (7) Pancytopenia Chronic D61.818 - OTHER PANCYTOPENIA Comment/Plan: Counts are okay currently. Continue to monitor Case Care Discussed with: Patient, Other (Group Home facility physician)
== END 2016-05-16 09:20 | DRG 442 ==
LOC: ED 10:03 → MPS3 13:00 → ICU 15:18
PROVIDERS: ADMIT Hospitalist; ATTEND Hospitalist
PROC: 039B3ZZ Drainage of Right Radial Artery, Percutaneous Approach (ICD-10-PCS; principal; 2016-05-14)
DX: K72.90 Hepatic failure, unspecified without coma (principal); D61.818 Other pancytopenia; E87.3 Alkalosis; E87.5 Hyperkalemia; I85.10 Secondary esophageal varices without bleeding; Z91.14 Patient's other noncompliance with medication regimen; K70.31 Alcoholic cirrhosis of liver with ascites; E11.9 Type 2 diabetes mellitus without complications; Z79.4 Long term (current) use of insulin; B19.20 Unspecified viral hepatitis C without hepatic coma; I10 Essential (primary) hypertension; Z79.899 Other long term (current) drug therapy; R53.81 Other malaise; J44.9 Chronic obstructive pulmonary disease, unspecified
CPT/HCPCS: 36415; 36600; 71010; 80053; 81001; 82140; 82803; 82962; 83036; 84484; 85025; 85027; 85610; 85730; 87040; 87086; 87641; 90732; 93005; 96372; 99285; J3490; S0164